=== PATIENT | female | born 1935 | race Caucasian/White ===

== ENCOUNTER 2018-03-13 19:59 | Emergency (ER) | payer MEDICARE, OTHER ==
[~2018-03-13] VITALS: Ht 160 cm; Wt 81.6 kg
[~2018-03-13 19:59] MED LIST: AMLO2.5T PO; BISA-51 OR; CHOL500021 PO; CITA-73 PO; DONE5TAB31 PO; FURO40TA4 PO; GABA-339 PO; HYDR50TA15 PO; PANT1INJ3 PO; PERCOT PO; POTA10TA51 PO; QUET100T46 PO; SIMV-8 PO
[2018-03-13] MEDS ORDERED: TETANUS-DIPTH-ACEL PERTUSSIS 0.5ML SYRG IM ONE (20:15)
[2018-03-14 07:17] VITALS: BP 130/76
== END 2018-03-14 09:00 | disposition home or self-care (01) ==
LOC: EDBD 19:59 → ER 19:59
DX: S01.01XA Laceration without foreign body of scalp, initial encounter (principal); Z88.6 Allergy status to analgesic agent; W19.XXXA Unspecified fall, initial encounter; Y93.89 Activity, other specified; Y99.8 Other external cause status; Y92.89 Other specified places as the place of occurrence of the external cause
CPT/HCPCS: 12002; 70450; 90471; 90715